=== PATIENT | male | born 1960 | race Hispanic/Latino ===

== ENCOUNTER 2018-03-26 22:00 | Emergency (ER) | payer SELFPAY ==
[2018-03-26 22:26] VITALS: BP 111/73
[2018-03-26] MEDS ORDERED: MORPHINE IV ONE (22:42)
[2018-03-26] MEDS ORDERED: VALIUM PO ONE (22:43)
--- NOTE | 2018-03-26 22:50 | Emergency Department Report ---
HPI - General Chief Complaint: Back Pain/Injury Time Seen by Provider: 03/26/18 22:35 - HPI HPI: 57-year-old male presents to the emergency department from home with a complaint of upper back pain that started this afternoon. The patient finished the fifth episode of his second round of radiation for left lung cancer. He did not have any discomfort at that time but once he got home he started having intense, sharp pains in the upper back "between my shoulder blades." The patient took one of his hydrocodone pain pills with some temporary and/or transient relief but it has returned. He denies any shortness of breath, chest pain, nausea, vomiting or fever. He denies any numbness or paresthesias. He called his oncologist service, Dr. Farooq, and spoke with a different oncologist who told him to come to the emergency department for further evaluation. ED Past Medical Hx - Past Medical History Previous Medical History?: Yes Hx of Cancer: Yes (Lung) - Surgical History Past Surgical History?: Yes Additional Surgical History: plate in r leg - Social History Smoking Status: Former Smoker Substance Use Type: None - Medications Home Medications: Home Medications Medication Instructions Recorded Confirmed Last Taken Type Cyclobenzaprine HCl [Flexeril 5 MG 5 mg PO TID PRN #10 tab 03/27/18 Unknown Rx TAB] ED Review of Systems ROS: Stated complaint: PAIN BETWEEN SHOULDER BLADES Other details as noted in HPI Comment: All other systems reviewed and negative Constitutional: denies: chills, fever Eyes: denies: eye pain, eye discharge, vision change ENT: denies: ear pain, throat pain Respiratory: denies: cough, shortness of breath, wheezing Cardiovascular: denies: chest pain, palpitations Gastrointestinal: denies: abdominal pain, nausea, diarrhea Genitourinary: denies: urgency, dysuria Musculoskeletal: back pain. denies: arthralgia Skin: denies: rash, lesions Neurological: denies: headache, weakness, paresthesias Physical Exam - Physical Exam Vital Signs: Vital Signs 03/26/18 03/26/18 22:19 22:27 Temperature 97.9 F Pulse Rate 95 H Respiratory 20 20 Rate Blood Pressure 111/73 O2 Sat by Pulse 99 99 Oximetry Physical Exam: GENERAL: The patient is well-developed well-nourished. HENT: Normocephalic. Atraumatic. Patient has moist mucous membranes. EYES: Extraocular motions are intact. NECK: Supple. No meningitic signs are noted. There is no adenopathy noted. CHEST/LUNGS: Clear to auscultation. There is no respiratory distress noted. HEART/CARDIOVASCULAR: Regular. There is no tachycardia. There is no murmur. ABDOMEN: Abdomen is soft, nontender. Patient has normal bowel sounds. There is no abdominal distention. SKIN: Skin is warm and dry. NEURO: The patient is awake, alert, and oriented. The patient is cooperative. The patient has no focal neurologic deficits. The patient has normal speech. MUSCULOSKELETAL: There is no tenderness or deformity. There is no limitation range of motion. There is no evidence of acute injury. BACK: No lumbar tenderness to palpation. There is upper thoracic midline and bilateral paraspinal tenderness to palpation. ED Course Vital Signs 03/26/18 03/26/18 22:19 22:27 Temperature 97.9 F Pulse Rate 95 H Respiratory 20 20 Rate Blood Pressure 111/73 O2 Sat by Pulse 99 99 Oximetry ED Medical Decision Making - Lab Data Result diagrams: 03/26/18 22:44 03/26/18 22:44 - EKG Data -: EKG Interpreted by Me EKG shows normal: sinus rhythm, axis, intervals, QRS complexes, ST-T waves ( nonspecific ST-T waves) Rate: normal - EKG Data When compared to previous EKG there are: previous EKG unavailable Interpretation: other (nonspecific ST-T waves) - Radiology Data Radiology results: image reviewed interpreted by me: X-ray of the thoracic spine does not show any fracture, dislocation, mass or bony abnormalities or any other acute process. - Medical Decision Making Patient presents with acute upper thoracic back pain since yesterday afternoon and early evening. He does not have any focal, motor or sensory deficits. The pain is reproducible to palpation. He was given some pain medication and a muscle relaxer and upon reevaluation his pain has gone down to a 2 out of 10. The labs were unremarkable including negative troponins 2. EKG did not show any signs of ST elevation [place] or dysrhythmia. Vital signs stable throughout his ED course. He was reevaluated multiple times for multiple hours and has been stable. Patient says he is feeling improved and asking for discharge home. - Differential Diagnosis muscle spasm, bony metastasis, contusion Critical Care Time: No Critical care attestation.: If time is entered above; I have spent that time in minutes in the direct care of this critically ill patient, excluding procedure time. ED Disposition Clinical Impression: Back pain Qualifiers: Back pain location: thoracic back pain Chronicity: acute Back pain laterality: unspecified Qualified Code(s): M54.6 - Pain in thoracic spine Disposition: DC-01 TO HOME OR SELFCARE Is pt being admited?: No Condition: Stable Instructions: Back Pain (ED) Additional Instructions: Please follow-up with your primary care physician and oncologist. Return to the emergency Department with any worsening of your symptoms or any acute distress. You have been prescribed a medication that is sedating and therefore should not be taken prior to driving, working, and responsible for children and in no way should be mixed with alcohol of any quantity. Prescriptions: Cyclobenzaprine HCl [Flexeril 5 MG TAB] 5 mg PO TID PRN #10 tab PRN Reason: Muscle Spasm Referrals: PRIMARY CARE, [Primary Care Provider] - NAIMA IRVING MD [Staff Physician] - 3-5 Days Time of Disposition: 02:22
[2018-03-26 22:57] LABS: Basophils % (Auto) 0.3 % (0.0-1.8); Eosinophils % (Auto) 0.2 % (0.0-4.3); Hematocrit 29.4 % (35.5-45.6); Hemoglobin 9.8 gm/dl (11.8-15.2); Lymphocytes # (Auto) 0.8 K/mm3 (1.2-5.4); Lymphocytes % (Auto) 4.6 % (13.4-35.0); Mean Corpuscular HGB Conc 33 % (32-34); Mean Corpuscular Hemoglobin 37 pg (28-32); Mean Corpuscular Volume 110 fl (84-94); Monocytes # (Auto) 1.8 K/mm3 (0.0-0.8); Monocytes % (Auto) 9.9 % (0.0-7.3); Platelet Count 160 K/mm3 (140-440); Red Blood Count 2.69 M/mm3 (3.65-5.03); Red Cell Distribution Width 17.5 % (13.2-15.2)
[2018-03-26 23:13] LABS: BUN/Creatinine Ratio 20; Blood Urea Nitrogen 24 mg/dL (9-20); Calcium 9.1 mg/dL (8.4-10.2); Hemolysis Index 1
--- NOTE | 2018-03-26 23:34 | XRay Report ---
FINAL REPORT PROCEDURE: Thoracic spine. TECHNIQUE: Three views. HISTORY: Back pain. COMPARISON: No prior studies are available for comparison. FINDINGS: The thoracic vertebrae have normal height and alignment. There are no fractures. There is no subluxation. The disc spaces appear adequate. A right-sided chest port is noted. IMPRESSION: No significant abnormality.
[2018-03-27] MEDS ORDERED: MORPHINE IV ONE (00:53)
== END 2018-03-27 02:35 | disposition home or self-care (01) ==
LOC: ED 22:00
DX: M54.6 Pain in thoracic spine (principal); Z85.118 Personal history of other malignant neoplasm of bronchus and lung; Z87.891 Personal history of nicotine dependence
CPT/HCPCS: 36415; 72072; 80048; 82550; 84484; 85025; 93005; 93010; 96374; 96376; 99284; J2270